=== PATIENT | male | born 1960 | race Caucasian/White ===

== ENCOUNTER 2021-05-04 19:26 | Outpatient (REF) | payer OTHER, SELFPAY ==
--- NOTE | ~2021-05-04 | MR_ITS ---
EXAMINATION: MR CERVICAL SPINE WITHOUT CONTRAST CLINICAL INFORMATION: 60-year-old with cervical radiculopathy, left. COMPARISON: None TECHNIQUE: MRI of the cervical spine was obtained using routine sequences without contrast. FINDINGS: ALIGNMENT: Mild lower cervical levocurvature noted. The cervical spine is anatomically aligned in the sagittal plane. Lordotic curvature is maintained. CRANIOCERVICAL JUNCTION/C1-C2 ARTICULATIONS: Intact and aligned. VISUALIZED INTRACRANIAL STRUCTURES: Within normal limits. VERTEBRAL BODIES: Slight chronic loss of height of the C5 vertebral body. Otherwise normal vertebral body heights. DISC SPACES AND ENDPLATES: Moderate disc space height loss at C5-C6 with Schmorl's nodes and minor spondylosis. Moderate disc space height loss at C6-C7. BONE MARROW: Mild type II degenerative marrow signal changes seen along the endplates at C5-C6. No bone marrow edema. C2-C3: No disc herniation. Moderate left-sided facet arthropathy noted without significant canal or neural foraminal stenosis. C3-C4: Mild broad-based posterior disc osteophyte complex with a superimposed tiny central disc protrusion, with mild flattening of the dural sac without cord impingement or spinal canal stenosis. There is bilateral uncovertebral spurring and there is facet arthrosis, right more than left. There is moderate right-sided and mild left-sided neural foraminal stenosis without significant spinal canal stenosis. C4-C5: Mild central disc protrusion noted with mild indentation of ventral thecal sac without cord impingement. Minor uncinate process spurring noted without significant canal or neural foraminal stenosis. C5-C6: Broad-based posterior disc osteophyte complex asymmetric to the right with effacement of the dural sac which contacts the ventral aspect of the spinal cord on the right with slight right-sided ventral cord deformity. There is mild spinal canal stenosis asymmetric to the right and there is bilateral uncovertebral spurring and facet hypertrophic changes, with moderate bilateral neural foraminal stenosis. C6-C7: There is broad-based posterior disc osteophyte complex, with mild flattening of the ventral dural sac with bilateral uncovertebral spurring and suspicion for a left-sided proximal foraminal disc herniation. There is mild facet arthropathy and there is moderate right-sided and moderate to severe left-sided neural foraminal compromise, with probable impingement on the exiting left C7 nerve root. There is borderline to mild central spinal canal stenosis. C7-T1: No disc herniation. Mild facet arthrosis noted on the right without significant canal or neural foraminal stenosis. There is a small perineural cyst in the left T1-T2 neural foramen. The cervical and visualized upper thoracic spinal cord is normal in signal intensity throughout, without focal lesion, edema or syrinx. MR/MR cervical spine wo con IMPRESSION: 1. Discogenic degenerative changes primarily at C5-C6 and C6-C7 with mild degrees of spondylosis between C4-C5 and C6-C7 inclusive and mild lower cervical levocurvature. 2. Multilevel posterior disc osteophyte complexes as described above and central disc protrusions, with mild ventral cord abutment and slight ventral cord deformity on the right at C5-C6 with associated mild spinal canal stenosis at this level. 3. Multilevel DJD with multilevel bilateral neural foraminal stenosis, most significant on the left at C6-C7 with suspicion for left foraminal disc herniation encroaching on the left C7 nerve root, best visualized on image 4 of series 3.
== END 2021-05-04 19:27 | disposition home or self-care (01) ==
LOC: HO.MRI 19:26
PROVIDERS: PCP Internal Medicine; Visit Provider Physician Assistant
DX: M54.12 Radiculopathy, cervical region (principal)
CPT/HCPCS: 72141

== ENCOUNTER 2022-07-28 13:50 | Outpatient (REF) | payer OTHER, SELFPAY ==
[2022-07-28 15:32] LABS: Hematocrit 44.8 % (42.0-52.0); Hemoglobin 14.8 g/dl (14.0-18.0); Mean Corpuscular Hemoglobin 29.9 pg (27.0-33.0); Mean Corpuscular Volume 90.5 fL (80.0-98.0); Mean Platelet Volume 11.1 fL (9.4-12.4); Platelet Count 221 X10*3/uL (160-400); Red Blood Count 4.95 X10*6/uL (4.60-5.80); Red Cell Distribution Width 12.5 % (11.0-16.0); White Blood Count 6.9 X10*3/uL (4.8-10.8)
[2022-07-28 16:06] LABS: Alanine Aminotransferase 24 U/L (0-40); Albumin Level 4.7 g/dL (3.5-5.0); Alkaline Phosphatase 82 U/L (39-117); Anion Gap 15 (12-20); Aspartate Amino Transferase 27 U/L (5-37); Bilirubin Direct 0.4 mg/dL (0.0-0.5); Bilirubin Total 1.6 mg/dL (0.0-1.0); Blood Urea Nitrogen 23 mg/dL (9-16); Carbon Dioxide 26 mmol/L (22-29); Chloride 103 mmol/L (96-108); Cholesterol 162 mg/dL; Estimated Glomerular Filt Rate > 60; Glucose Random 77 mg/dL (60-115); HDL Cholesterol 51 mg/dL; LDL Cholesterol Calculated 77 mg/dl; Potassium 4.7 mmol/L (3.3-5.1); Sodium 139 mmol/L (135-145); Total Protein 7.5 g/dL (6.5-8.0); Triglycerides 172 mg/dL
[2022-07-28 16:22] LABS: Thyroid Stimulating Hormone 2.76 uIU/mL (0.32-4.0)
== END 2022-07-28 13:51 | disposition home or self-care (01) ==
LOC: HO.LAB 13:50
PROVIDERS: PCP Internal Medicine; Visit Provider Internal Medicine
DX: Z00.01 Encounter for general adult medical examination with abnormal findings (principal)
CPT/HCPCS: 36415; 80048; 80061; 80076; 84443; 85027

== ENCOUNTER 2024-01-03 15:15 | Outpatient (AMB) | payer OTHER, SELFPAY ==
--- NOTE | 2024-01-03 15:20 | A.OFFPC_ITS ---
Vital Signs 01/03/24 15:22 Height 6 ft Weight 170 lb 8 oz BMI 23.1 BP 120/64 Blood Pressure Location Lt brachial Position Sitting Pulse 62 Pulse Source Pulse Oximeter Pulse Oximetry (%) 97 Oxygen Delivery Method Room Air Intake Visit Reasons: annual exam Intake Note: Patient is here today for a physical. Banana Ripening Room Supervisor Required: No Church Supervisor: Not Required per policy Accompanied by: Self / Same As Patient Allergies No Known Allergies Allergy (Verified 01/03/24 18:44) Medication List - Last Reconciled 01/03/24 by Go Bear MD aspirin 1 tab PO DAILY atorvastatin 20 mg PO DAILY hydrocortisone 2.5% (Proctosol HC) 1 appl OK BID-QID PRN Tobacco use date assessed: 01/03/24 Dental Screening Dental Screen Date: 01/03/24 Did you have a dental visit in the last 12 months?: Yes Did you have a dental problem in the last 6 months where you did not have access to dental care?: No Was dental information given to patient?: Patient has dentist HPI annual exam HPI Details 63-year-old male presents to the office requesting an annual physical. COUNT INCLUDES [facility] Medical History (Updated 01/03/24 @ 18:46 by Go Bear MD) Hyperlipidemia, unspecified Surgical History History of shoulder surgery History of hernia repair History of colonoscopy History of repair of rotator cuff Family History Father CVD (cardiovascular disease) Myocardial infarction Mother Alcohol abuse Substance use disorder Brother No problems noted. Sister In good health Son In good health Social History Housing: House Alcohol intake: current Alcohol intake frequency: holidays/special occasions only Patient Tobacco Use Status: Never used Tobacco Tobacco use type: Cigarette e-Cigarette/Vaping Use: Never Used Second Hand Smoke Exposure: No service: No Current occupational status: employed Cognitive needs: No Hearing needs: No Vision needs: Yes (Glasses) Questionnaire PHQ-9 Over the last 2 weeks, how often have you been bothered by any of the following problems? 1. Little interest or pleasure in doing things: not at all 2. Feeling down, depressed, or hopeless: not at all 3. Trouble falling or staying asleep, or sleeping too much: not at all 4. Feeling tired or having little energy: not at all 5. Poor appetite or overeating: not at all 6. Feeling bad about yourself - or that you are a failure or have let yourself or your family down: not at all 7. Trouble concentrating on things, such as reading the newspaper or watching television: not at all 8. Moving or speaking so slowly that other people could have noticed. Or the opposite - being so fidgety or restless that you have been moving around a lot more than usual: not at all 9. Thoughts that you would be better off or of hurting yourself in some way: not at all Total score: 0 Depression Screening Interpretation: Negative Depression Screening Done: Yes Source: Developed by Drs. Tuan Rucker, Karlee Pizarro, Champ Robles and colleagues, with an educational hermes from [employer]. Thrive Questionnaire Date Thrive assessed: 01/03/24 I am a: Patient What is your living situation today?: I have a steady place to live Within the past 12 months, did the food you bought not last and you didn't have the money to get more?: Never true Within the past 12 months, did you worry whether your food would run out before you got money to buy more?: Never true Do you have trouble paying for medicines?: No Do you have trouble getting transportation to medical appointments?: No Do you have trouble paying your heating and electricity bill?: No Do you have trouble taking care of your child, family member or friend?: No Do you have trouble with day-to-day activities such as bathing, preparing meals, shopping, managing finances, etc.?: No Are you currently unemployed and looking for a job?: No Are you interested in more education?: No Currently or been in a relationship where the following occur: no concerns reported THRIVE Score: 0 AUDIT C Alcohol Use Questionnaire (AUDIT-C) 1. How often do you have a drink containing alcohol?: Never Total Score: 0 NINA-7 AMB Questionnaire NINA-7 Date NINA - 7 assessed: 01/03/24 Feeling nervous, anxious, or on edge: 0 = Not at all Not being able to stop or control worryin = Not at all Worrying too much about different things: 0 = Not at all Trouble relaxin = Not at all Being so restless that it is hard to sit still: 0 = Not at all Becoming easily annoyed or irritable: 0 = Not at all Feeling afraid as if something awful might happen: 0 = Not at all Total NINA-7 score (0-4 normal; 5-9 mild; 10-14 moderate; 15-21 severe): 0 Source: Developed by Drs. Tuan Rucker, Karlee Pizarro, Champ Robles and colleagues, with an educational hermes from [employer]. Physical exam (Primary Care) Vital Signs: Last Vital Signs Pulse 62 01/03/24 15:22 BP 120/64 01/03/24 15:22 Pulse Ox 97 01/03/24 15:22 Oxygen Delivery Method Room Air 01/03/24 15:22 Care Plan Goal for BP management: Blood pressure is in range. On no medications. BMI result Body Mass Index 23.1 Tobacco/Smoking Status: Tobacco use Status Tobacco use date assessed 01/03/24 01/03/24 15:26 Patient Tobacco Use Status Never used Tobacco 01/03/24 15:26 Tobacco use type Cigarette 01/03/24 15:26 e-Cigarette/Vaping Use Never Used 01/03/24 15:26 PHQ-9: PHQ-9 Score PHQ-9: Total score 0 01/03/24 15:37 Depression Screening Interpretation: Negative Thrive Assessment: Date of Thrive Assessment Date Thrive assessed 01/03/24 01/03/24 15:26 Currently or been in a relationship where the following occur: no concerns reported Advance Care Planning discussion: Exists, not on file Date of discussion: 01/03/24 Who was present: Patient Forms completed: Health Care Proxy and MOLST Time spent: 1-15 minutes, not on file Actual minutes spent: 5 Const General: cooperative and healthy appearing Nutritional Appearance: well nourished Orientation/consciousness: patient oriented x3 Limitations: no limitations HENMT Head: Yes normal to inspection Eyes General: appearance normal, both eyes and all related structures Neck Neck: Yes normal visual inspection Chest Chest palpation & inspection: normal palpation of entire chest wall Resp Effort & Inspection: normal respiratory effort Other: Male: Testicles are normal. Hernial orifices are negative. Neuro General: patient oriented x3 Assessment and Plan Assessment & Plan (1) Hyperlipidemia, unspecified: Code(s): E78.5 - Hyperlipidemia, unspecified Plan: Blood work has been ordered will call with results. (2) Annual physical exam: Code(s): Z00.00 - Encounter for general adult medical examination without abnormal findings Plan: Patient had a screening colonoscopy 6 years ago. PSA has been added to the ood work. Medications: Refilled atorvastatin 20 mg PO DAILY 90 tabs 1RF Coding Level of Care Code Est Pt Prev Care 40-64y(54279) Diagnoses Hyperlipidemia, unspecified E78.5 Annual physical exam Z00.00 Additional Codes Vital Signs *Quality* - Advance Care Planning discussion: Exists, not on file ([id number]) Vital Signs *Quality* - Time spent: 1-15 minutes, not on file ([id number])
[2024-01-03 15:22] VITALS: BP 120/64; PULSE 62; O2SAT 97; BMI 23.1
== END 2024-01-03 15:50 | disposition home or self-care (01) ==
PROVIDERS: PCP Internal Medicine; Visit Provider Internal Medicine
DX: E78.5 Hyperlipidemia, unspecified (principal); Z00.00 Encounter for general adult medical examination without abnormal findings
CPT/HCPCS: 1123F; 1124F; 99396

== ENCOUNTER 2024-01-10 10:21 | Outpatient (REF) | payer OTHER, SELFPAY ==
[2024-01-10 11:01] LABS: Hematocrit 45.2 % (42.0-52.0); Hemoglobin 15.3 g/dl (14.0-18.0); Mean Corpuscular HGB Conc 33.8 g/dl (31.0-36.0); Mean Corpuscular Hemoglobin 29.7 pg (27.0-33.0); Mean Corpuscular Volume 87.6 fL (80.0-98.0); Mean Platelet Volume 9.7 fL (9.4-12.4); Platelet Count 224 X10*3/uL (160-400); Red Blood Count 5.16 X10*6/uL (4.60-5.80); Red Cell Distribution Width 13.1 % (11.0-16.0)
[2024-01-10 12:11] LABS: Alanine Aminotransferase 26 U/L (0-40); Albumin Level 4.5 g/dL (3.5-5.0); Alkaline Phosphatase 74 U/L (39-117); Anion Gap 13 (12-20); Aspartate Amino Transferase 20 U/L (5-37); Bilirubin Direct 0.3 mg/dL (0.0-0.5); Bilirubin Total 1.2 mg/dL (0.0-1.0); Blood Urea Nitrogen 19 mg/dL (9-16); Calcium 9.7 mg/dL (8.4-10.2); Carbon Dioxide 26 mmol/L (22-29); Chloride 107 mmol/L (96-108); Cholesterol 184 mg/dL (<200); Estimated Glomerular Filt Rate > 60; Glucose Random 89 mg/dL (60-115); HDL Cholesterol 61 mg/dL (>40); LDL Cholesterol Calculated 104 mg/dL (<100); Potassium 4.6 mmol/L (3.3-5.1); Sodium 141 mmol/L (135-145); Total Protein 7.6 g/dL (6.5-8.0); Triglycerides 95 mg/dL (<150)
[2024-01-10 12:20] LABS: Prostate Specific Antigen Scr 3.01 ng/mL (<0.05-4.0)
[2024-01-10 12:30] LABS: Thyroid Stimulating Hormone 1.88 uIU/mL (0.32-4.0)
== END 2024-01-10 10:22 | disposition home or self-care (01) ==
LOC: HO.LAB 10:21
PROVIDERS: PCP Internal Medicine; Visit Provider Internal Medicine
DX: E78.5 Hyperlipidemia, unspecified (principal); Z12.5 Encounter for screening for malignant neoplasm of prostate
CPT/HCPCS: 36415; 80048; 80061; 80076; 84153; 84443; 85027

== ENCOUNTER 2024-05-07 08:05 | Day surgery (SDC) | payer OTHER, SELFPAY ==
[2024-05-03 14:38] VITALS: BMI 23.8
[2024-05-07 09:24] VITALS: BMI 23.3
--- NOTE | 2024-05-07 09:25 | P.CONAN_ITS ---
Documented by User: Lisa Goddard NP 05/04/24 09:18 HPI - Anesthesia Eval Consult details Narrative: 63yo M for Colonoscopy [facility] Active Problems Active Problems: All Active Problems Cervical radiculopathy (Acute) Encounter for general adult medical examination with abnormal findings (Acute) Hyperlipidemia, unspecified (Acute) Past Medical History Medical History (Updated 05/03/24 @ 14:34 by Dalia Roland RN) Essential tremor Hyperlipidemia, unspecified Family History Family History Father CVD (cardiovascular disease) Myocardial infarction Mother Alcohol abuse Substance use disorder Brother No problems noted. Sister In good health Son In good health Surgical History Surgical History History of shoulder surgery History of hernia repair History of colonoscopy History of repair of rotator cuff Social History Social History Housing: House Alcohol intake: current Alcohol intake frequency: holidays/special occasions only Patient Tobacco Use Status: Never used Tobacco Tobacco use type: Cigarette e-Cigarette/Vaping Use: Never Used Second Hand Smoke Exposure: No Use of substances other than those prescribed or required for medical reasons: No Are you DNR?: No Advance Directives: No Advance Directives Information Provided: Yes Advance Directives on File: No Recently lost weight without trying: No Nutrition Risks: No Nutritional Risk Poor oral hygiene: No service: No Current occupational status: employed Cognitive needs: No Hearing needs: No Vision needs: Yes (Glasses) Meds Allergies Allergy/AdvReac Type Severity Reaction Status Date / Time No Known Allergies Allergy Verified 01/03/24 18:44 Exam Height,Weight and Vital Signs: Height 5 ft 11.5 in Weight 78.471 kg Assessment and Plan Assessment Anesthesia Assessment: Chart Reviewed Documented by User: Sharona Still DO 05/07/24 09:34 [facility] Past Medical History Medical History (Updated 05/03/24 @ 14:34 by Dalia Roland RN) Essential tremor Hyperlipidemia, unspecified Family History Family History Father CVD (cardiovascular disease) Myocardial infarction Mother Alcohol abuse Substance use disorder Brother No problems noted. Sister In good health Son In good health Family history of problems with anesthesia: No Surgical History Surgical History History of shoulder surgery History of hernia repair History of colonoscopy History of repair of rotator cuff History of Problems with Anesthesia: No Social History Social History Housing: House Alcohol intake: current Alcohol intake frequency: holidays/special occasions only Patient Tobacco Use Status: Never used Tobacco Tobacco use type: Cigarette e-Cigarette/Vaping Use: Never Used Second Hand Smoke Exposure: No Use of substances other than those prescribed or required for medical reasons: No Are you DNR?: No Advance Directives: No Advance Directives Information Provided: Yes Advance Directives on File: No Recently lost weight without trying: No Nutrition Risks: No Nutritional Risk Poor oral hygiene: No service: No Current occupational status: employed Cognitive needs: No Hearing needs: No Vision needs: Yes (Glasses) Meds Allergies Allergy/AdvReac Type Severity Reaction Status Date / Time No Known Allergies Allergy Verified 01/03/24 18:44 Exam Exam Date and Time: 05/07/24 0925 Height,Weight and Vital Signs: Height 5 ft 11.5 in Weight 76.827 kg Height 5 ft 11.5 in Weight 78.471 kg Airway Mallampati Class: II TM Dist: >3cm Neck ROM: Full Loose/Missing/Broken Teeth: No (patient denies any looseor broken teeth) Heart: S1S2 Lungs: CTb Assessment and Plan Assessment Anesthesia Assessment: Anesthesia Plan Discussed and Chart Reviewed Final Anesthetic Review Family History of Problems with Anesthesia: No History of Problems with Anesthesia: No NPO: Yes ASA Class: II Final Preanesthetic Review: No Changes in Pt Med Stat, Meds/Allgs Chart Reviewed, Consent Obtained/Reviewed and Anes Risks/Benef Reviewed Patient Risk: Low Procedure Risk: Low Anesthetic Plan Anesthetic Plan: MAC: and Agree w/ Assess. and Plan Disposition: Standard PACU
[2024-05-07 09:29] VITALS: BP 139/95; PULSE 74; RESP 16; TEMP 36.8; O2SAT 99
[2024-05-07] MEDS: Lactated Ringers 1,000 ML 100 ML IVCONT (09:50)
[2024-05-07 10:40] VITALS: BP 117/60; PULSE 69; RESP 16; TEMP 36.1; O2SAT 95
--- NOTE | 2024-05-07 10:41 | PM.OP ---
Brief Operative Note Date of Service: 05/07/24 Pre-op diagnosis: Screening Post-op diagnosis: other (Polyp) Procedure: Colonoscopy to the cecum and TI with hot snare polypectomy x 1 Surgeon: Tuan Adorno MD Anesthesia: MAC Was an [employer] used for this Procedure?: No Estimated blood loss (mL): 0 Pathology: other (A. Polyp at 40cm) Condition: stable Disposition: PACU
[2024-05-07 10:55] VITALS: BP 105/75; PULSE 67; RESP 16; O2SAT 97
[2024-05-07 11:07] VITALS: BP 128/75; PULSE 69; RESP 16; TEMP 36.1; O2SAT 97
--- NOTE | 2024-05-07 11:58 | OP_ITS ---
DATE OF SERVICE: 05/07/2024 SURGEON: Tuan Adorno MD INDICATIONS: The patient presents for evaluation of personal history of tubular adenoma of the colon and colorectal cancer screening. Full consent has been obtained from him for this, including risks of bleeding and perforation. PREOPERATIVE DIAGNOSIS: POSTOPERATIVE DIAGNOSIS: PROCEDURE PERFORMED: Colonoscopy to the cecum and terminal ileum with hot snare polypectomy. ESTIMATED BLOOD LOSS: COMPLICATIONS: ANESTHESIA: Monitored anesthesia care. ASSISTANTS: SPECIMENS: PREOPERATIVE DIAGNOSES: Colorectal cancer screening and personal history of tubular adenoma of the colon. POSTOPERATIVE DIAGNOSES: Colorectal cancer screening and personal history of tubular adenoma of the colon, colon polyp, diverticulosis, and internal hemorrhoids. DESCRIPTION OF PROCEDURE: The patient was placed in the left lateral decubitus position. The digital rectal exam revealed no abnormalities. The Olympus video pediatric colonoscope was entered into the rectum and advanced easily to the cecum. Once in the cecum, I did identify normal-appearing cecal pouch with appendiceal orifice and a normal-appearing ileocecal valve. The terminal ileum was cannulated and appeared normal. The scope was withdrawn back in the colon. The entire cecum and ileocecal valve appeared normal. The scope was slowly withdrawn assessing all mucosal surfaces carefully. Preparation was excellent. At 40 cm, was an approximately 6 to 8 mm flat, but slightly raised grossly adenomatous polyp, which was removed by hot snare polypectomy and recovered by suction. The polypectomy site appeared clean, without any sign of residual polyp nor bleeding. I did not visualize any other polyps, colitis, or angiodysplasia. There was a mild amount of sigmoid diverticulosis. In the rectum, scope was retroflexed visualizing internal hemorrhoids, but no other pathology. The rectal mucosa appeared normal. The scope was straightened and withdrawn from the patient. He tolerated the procedure well and was returned to the recovery area in stable condition. IMPRESSION: 1. Colon polyp. 2. Diverticulosis. 3. Internal hemorrhoids. PLAN: The results of the pathology will be checked, I would recommend a repeat colonoscopy in 5 years for further screening. He was advised not to use any aspirin and NSAIDs for 1 week. MD RAMO Galeas/CATHERINE / [id number]
== END 2024-05-07 11:31 | disposition home or self-care (01) ==
PROVIDERS: PCP Internal Medicine; Visit Provider Internal Medicine
PROC: 0DJD8ZZ Inspection of Lower Intestinal Tract, Via Natural or Artificial Opening Endoscopic (ICD-10-PCS; CPT 45378; principal; 2024-05-07 09:30)
DX: Z12.11 Encounter for screening for malignant neoplasm of colon (principal); Z86.0101 Personal history of adenomatous and serrated colon polyps; K63.5 Polyp of colon; K57.30 Diverticulosis of large intestine without perforation or abscess without bleeding; K64.8 Other hemorrhoids; E78.5 Hyperlipidemia, unspecified; G25.0 Essential tremor; Z79.82 Long term (current) use of aspirin; Z79.899 Other long term (current) drug therapy; Z98.890 Other specified postprocedural states
CPT/HCPCS: 45385; 88305; J2003; J2250; J2704